=== PATIENT | female | born 1960 | race Two or more races ===

== ENCOUNTER 2018-04-04 18:50 | Emergency (ER) | payer SELFPAY ==
[~2018-04-04] VITALS: Ht 165.1 cm; Wt 77.0 kg
[2018-04-04] MEDS ORDERED: SODIUM CHLORIDE 0.9% 1,000 ML IV SCH (19:03)
[2018-04-04] MEDS ORDERED: FAMOTIDINE 20MG/2ML VIAL IV ONE (19:15)
[2018-04-04] MEDS ORDERED: DIPHENHYDRAMINE 50MG/ML VIAL IV ONE (19:15)
[2018-04-04] MEDS ORDERED: DEXAMETHASONE 10 MG/ML VIAL IV ONE (19:15)
[2018-04-04] MEDS ORDERED: EPINEPHRINE 1:1000 1 MG/ML AMP IM ONE (19:45)
[2018-04-04 20:04] VITALS: BP 174/95
== END 2018-04-04 20:14 | disposition left against medical advice (07) ==
LOC: ER 20:12
DX: T78.1XXA Other adverse food reactions, not elsewhere classified, initial encounter (principal); F17.200 Nicotine dependence, unspecified, uncomplicated; X58.XXXA Exposure to other specified factors, initial encounter
CPT/HCPCS: 96374; 96375; 99283; J1100; J1200; J3490